=== PATIENT | male | born 1980 | race Caucasian/White ===

== ENCOUNTER 2016-11-13 19:31 | Emergency (ER) | payer BC, OTHER ==
[~2016-11-13] VITALS: Ht 180.3 cm; Wt 106.6 kg
[2016-11-13] MEDS ORDERED: ADVI200T PO (19:45)
[2016-11-13] MEDS ORDERED: KETOROLAC 30 MG/ML VIAL (J1885) IV ONE (20:15)
[2016-11-13] MEDS ORDERED: NS 1,000 ML IV ONE (20:30)
[2016-11-13 20:44] LABS: BASO % 0.3 % (0.0-1.0); EOS # 0.2 K/mm3 (0.0-0.50); EOS % 1.2 % (0.0-3.0); LARGE UNSTAINED CELL # 0.1 K/mm3 (0.0-0.4); LARGE UNSTAINED CELL % 0.6 % (0.0-4.0); LYMPH # 1.4 K/mm3 (1.5-4.5); MEAN CORPUSCULAR HEMOGLOBIN 30.8 pg (27.0-33.0); MEAN CORPUSCULAR HGB CONC 34.2 g/dl (32.0-36.5); MEAN CORPUSCULAR VOLUME 90.1 fl (80.0-96.0); MONO # 0.7 K/mm3 (0.0-0.8); MONO % 4.6 % (0.0-5.0); NEUTROPHILS # 12.1 K/mm3 (1.8-7.7); NEUTROPHILS % 84.3 % (36.0-66.0); PLATELET COUNT, AUTOMATED 347 k/mm3 (150-450); RED CELL DISTRIBUTION WIDTH 13.2 % (11.5-14.5); WHITE BLOOD COUNT 14.4 K/mm3 (4.0-10.0)
[2016-11-13 21:07] LABS: ALBUMIN 4.2 GM/DL (3.2-5.2); ALBUMIN/GLOBULIN RATIO 1.31 (1.00-1.93); ALKALINE PHOSPHATASE 64 U/L (45-117); ALT/SGPT 41 U/L (12-78); ANION GAP 7 MEQ/L (8-16); AST/SGOT 21 U/L (15-37); BILIRUBIN,DIRECT 0.2 MG/DL (0.0-0.2); BILIRUBIN,TOTAL 0.6 MG/DL (0.2-1.0); BLOOD UREA NITROGEN 20 MG/DL (7-18); CALCIUM LEVEL 8.8 MG/DL (8.5-10.1); CARBON DIOXIDE LEVEL 30 MEQ/L (21-32); CHLORIDE LEVEL 104 MEQ/L (98-107); CREATININE FOR GFR 1.39 MG/DL (0.70-1.30); GLOMERULAR FILTRATION RATE > 60.0 (>60); GLUCOSE, FASTING 104 MG/DL (70-105); SODIUM LEVEL 141 MEQ/L (136-145); TOTAL PROTEIN 7.4 GM/DL (6.4-8.2)
--- NOTE | 2016-11-13 21:09 | REP ---
Clinical: Right renal colic/flank pain. Findings: The right kidney demonstrates mild hydroureteronephrosis secondary to a 4 mm calculus at the ureterovesicle junction (images 113 - 114). The bilateral kidneys and ureters are otherwise normal and without further nephroureterolithiasis, left hydronephrosis, or perinephric stranding. Liver, spleen, pancreas, gallbladder, bilateral adrenal glands are normal. The enteric system is without obstruction or acute inflammatory process. Normal terminal ileum and appendix identified in the right lower quadrant. Scattered sigmoid diverticula noted without acute diverticulitis. Pelvis demonstrates bladder as described above with 4 mm calculus at the right UVJ and age appropriate prostate/seminal vesicles. No ascites. No free air. No adenopathy. Abdominal aorta without aneurysm. Musculoskeletal structures without focal osseous abnormality. Impression: 1. Mild right-sided obstructive uropathy with a 4 mm calculus at the ureterovesicle junction. Otherwise normal bilateral kidneys/ureters and bladder. 2. No further acute intra-abdominal or pelvic pathology appreciated. Signed by Forrest Abraham MD 11/13/2016 09:01 P
[2016-11-13] MEDS ORDERED: FLOM5CAP PO (21:31)
[2016-11-13] MEDS ORDERED: IBUP600T26 PO (21:31)
[2016-11-13] MEDS ORDERED: NORCOTAB PO (21:31)
[2016-11-13] MEDS ORDERED: ZOFR4TAB3 PO (21:31)
[2016-11-13 21:34] VITALS: BP 116/69
== END 2016-11-13 21:59 | disposition home or self-care (01) ==
LOC: M ED 20:34
DX: N20.1 Calculus of ureter (principal)
CPT/HCPCS: 74176; 80048; 80076; 81001; 85025; 87086; 96374; 99283; J1885